=== PATIENT | female | born 1960 | race Caucasian/White ===

== ENCOUNTER 2022-02-19 17:37 | Inpatient (IN) | payer OTHER, MEDICAID ==
[~2022-02-19] VITALS: Ht 162.6 cm; Wt 57.6 kg
[2022-02-19 17:37] VITALS: BP 134/63
--- NOTE | 2022-02-19 17:37 | NUR ---
ZAIRE FONTAINE VIA GURNEY TO BED 03.
--- NOTE | 2022-02-19 17:45 | NUR ---
61 Y/O FEMALE BIBA FROM [facility] C/O JAW PAIN AND SWELLING X TODAY. PT IS NON VERBAL. PER EMS PT O2 SAT WAS 90% THEREFORE SHE WAS PLACED ON 2 L NC. PT IS NOW SATING AT 96%. PMH: CP, SEIZURE DISORDER, QUADRIPLEGIA
[2022-02-19 18:45] LABS: BASOPHILS % (AUTO) 0.3 % (0.0-2.0); HEMATOCRIT 38.4 % (36-48); HEMOGLOBIN 12.4 g/dL (12.0-16.0); LYMPHOCYTES # (AUTO) 0.7 K/uL (2.5-16.5); LYMPHOCYTES % (AUTO) 5.2 % (20.5-51.1); MEAN CORPUSCULAR HEMOGLOBIN 29 pg (27-31); MEAN CORPUSCULAR HGB CONC 32 g/dL (33-37); MEAN CORPUSCULAR VOLUME 90.9 fL (80-94); MONOCYTES # (AUTO) 1.2 K/uL (0.8-1.0); MONOCYTES % (AUTO) 9.5 % (1.7-9.3); NEUTROPHILS # (AUTO) 10.9 K/uL (1.8-7.7); PLATELET COUNT (AUTO) 132 K/uL (140-450); RED BLOOD CELL COUNT(AUTO) 4.22 MIL/uL (4.20-5.40); RED CELL DISTRIBUTION WIDTH 14.8 % (11.6-13.7); WHITE BLOOD COUNT (AUTO) 12.8 K/uL (4.8-10.8)
[2022-02-19 19:02] LABS: ALBUMIN 2.7 g/dL (3.4-5.0); ANION GAP 7.9 (8-16); CARBON DIOXIDE 34.9 mmol/L (21-32); CREATININE 0.8 mg/dL (0.6-1.3); TOTAL BILIRUBIN 0.4 mg/dL (0.0-1.0)
[2022-02-19 19:04] LABS: POTASSIUM 2.8 mmol/L (3.5-5.1)
--- NOTE | 2022-02-19 19:08 | NUR ---
PT RESTING IN BED, EVEN AND UNLABORED BREATHING.
[2022-02-19] MEDS ORDERED: POTASSIUM CHL 20 MEQ/NACL 0.9% 1,000 ML IV ONE ×2 (19:15→21:10)
--- NOTE | 2022-02-19 19:20 | NUR ---
Pt report given to AVIVA YU. Transfer of care at this time.
--- NOTE | 2022-02-19 19:43 | NUR ---
BAMBI MOSER, CARE DIRECTOR RN, CALLED TO CHECK ON PT CONDITION.
[2022-02-19] MEDS ORDERED: CLINDAMYCIN 300 MG in DEXTROSE 5% 50 ML IV ONE (21:10)
--- NOTE | 2022-02-19 22:00 | NUR ---
PT PULLED OUT HER IV AND NASAL CANULA. PT IS UNCOOPERATIVE WITH REPLACING LINES.
--- NOTE | 2022-02-19 22:12 | NUR ---
OBTAINED JHONY SAMPLE AND WALKED TO LAB, HANDED TO CPT. SHAHNAZ
[2022-02-19] MEDS ORDERED: CLINDAMYCIN 600 MG/4 ML VIAL ONE (22:13)
--- NOTE | 2022-02-19 22:20 | NUR ---
González mancera in [facility] - 02/20/22 at 0000 by [email or web address] PT IS NORMALLY ALTERED AND NON VERBAL, PT CONTINUES TO PULL OUT MEDICAL LINES. DR CARMEN AUTHORIZED VERBAL CONSENT FOR SOFT RESTRAINTS.
--- NOTE | 2022-02-19 22:23 | NUR ---
PT TAKEN TO CT
--- NOTE | 2022-02-19 22:25 | NUR ---
PT IS NORMALLY ALTERED AND NON VERBAL, PT CONTINUES TO PULL OUT MEDICAL LINES. DR CARMEN AUTHORIZED VERBAL CONSENT FOR SOFT RESTRAINTS.
--- NOTE | 2022-02-19 22:40 | NUR ---
PT UNCOOPERATIVE AND PULLED OUT US GUIDED IV AND NASAL CANULA. PT'S PUSOX DIPS TO 88% WITHOUT SUPPLEMENTAL OXYGEN.
[2022-02-19] MEDS ORDERED: LAM200 GT (22:49)
[2022-02-19] MEDS ORDERED: ROB1 GT (22:49)
[2022-02-19] MEDS ORDERED: ACET-10509 PO (22:49)
[2022-02-19] MEDS ORDERED: ALUM355S50 PO (22:49)
[2022-02-19] MEDS ORDERED: DIPH25TA53 GT (22:49)
[2022-02-19] MEDS ORDERED: CRAN450T5 PO (22:49)
[2022-02-19] MEDS ORDERED: [UNRECOGNIZED DRUG - CODE] GT (22:49)
[2022-02-19] MEDS ORDERED: VITA1TAB61 GT (22:49)
[2022-02-19] MEDS ORDERED: HYD1C TP (22:49)
[2022-02-19] MEDS ORDERED: LOPE2CAP5 PO (22:49)
[2022-02-19] MEDS ORDERED: FAMO-92 GT (22:49)
[2022-02-19] MEDS ORDERED: DOCU-299 PO (22:49)
[2022-02-19] MEDS ORDERED: MELA5SGL GT (22:49)
[2022-02-19] MEDS ORDERED: LEVE750T25 PO (22:49)
[2022-02-19] MEDS ORDERED: LORA10TA19 PO (22:49)
[2022-02-19] MEDS ORDERED: FOLI1TAB90 GT (22:49)
--- NOTE | 2022-02-19 23:26 | NUR ---
Patient will be admitted to care of DR MALONEY. Admited to Med/Surg. Will go to room 110B. Belongings list completed. Report to AVIVA MONTES.
--- NOTE | 2022-02-19 23:30 | NUR ---
GET THE PATIENT REPORT FROM ER NURSE MAGDALENO, PATIENT IS LYING ON BED, PATIENT IS ALERT BUT NON VERBLE, PATIENT IS RECEIVING OXYGEN 2 LITER VIA NASAL CANNULA , PATIENT IS ON SOFT RESTRAIN , CALL LIGHT IS WITHIN THE REACH ,WILL CONTINUE TO MONITOR PATIENT.
[2022-02-19] MEDS: POTASSIUM CHL 20 MEQ/D5-1/2NS 1,000 ML IV SCH (23:40)
--- NOTE | 2022-02-20 01:00 | NUR ---
PATIENT BLOOD PRESSURE IS : 165/77. HR: 82.TEMP : 99.0F, MASSAGE DOCTOR PALIWAL TO GET ANY PRN MEDICATION ORDER, WAITING FRO DOCTOR TO RESPOND ,CALL LIGHT IS WITHIN THE REACH, WILL CONTINUE TO MONITOR PATIENT.
--- NOTE | 2022-02-20 03:17 | NUR ---
RE CHECKED PATIENT BLOOD PRESSURE IS 132/75.TEMP : 98.7F , CALL LIGHT IS WITHIN THE REACH ,WILL CONTINUE TO MONITOR PATIENT.
[2022-02-20 04:00] VITALS: BP 132/75
--- NOTE | 2022-02-20 04:32 | NUR ---
PATIENT IS LYING ON BED, VITAL SIGN IS WITHIN THE NORMAL RANGE, NO ANY COMPLAIN OF PAIN OR SHORTNESS OF BREATH AT THIS TIME, ALL SCHEDULE MEDICATION IS GIVEN PER DOCTOR ORDER, CALL LIGHT IS WITHIN THE REACH, WILL CONTINUE TO MONITOR PATIENT.
--- NOTE | 2022-02-20 06:08 | NUR ---
PATIENT IS LYING ON BED , CALL LIGHT IS WITHIN THE REACH, WILL CONTINUE TO MONITOR PATIENT.
[2022-02-20] MEDS ORDERED: hydrALAZINE 20 MG/ML VIAL IVP PRN (06:35)
--- NOTE | 2022-02-20 07:35 | NUR ---
GAVE REPORT TO MORNING NURSE TESSY FOR CONTINUOS OF CARE, PATIENT IS STABLE.
--- NOTE | 2022-02-20 07:36 | NUR ---
RECEIVED REPORT FROM ORDER BOOKER NURSE FOR CONTINUITY OF CARE. PT IS AWAKE IN BED. BREATHING EVEN AND UNLABORED ON 2 L NC. NO DISTRESS NOTED. SKIN IS INTACT, WARM AND DRY TO TOUCH WITH REDNESS AND SWELLING ON JAW. IV SITE ON RENARD 20G RUNNING D5 1/2 NS/KCL 20MEq 1000 AT 100ML/HR.PT TOLERATING IT WELL. PT ON NPO. PT HAS G-TUBE, INTACT. PT ON SOFT BILATERAL WRIST RESTRAINT. NO REDNESS, SKIN IS INTACT, CIRCULATION IS GOOD UPON ASSESSMENT OF BOTH WRISTS. CALL LIGHT WITHIN REACH. SAFETY MEASURES IN PLACE. WILL CONTINUE TO MONITOR.
[2022-02-20 08:00] VITALS: BP 170/90
[2022-02-20] MEDS: POTASSIUM CHL 20 MEQ/D5-1/2NS 1,000 ML IV SCH ×2 (08:02→18:11)
--- NOTE | 2022-02-20 08:05 | NUR ---
D5 1/2 NS / KCL 20MEQ HUNG BY RN. PT TOLERATED WELL. WILL CONTINUE TO MONITOR.
--- NOTE | 2022-02-20 09:34 | NUR ---
SBP 170S, DBP 90S. PRN BP MED ADMINISTERED BY RN. WILL CONTINUE TO MONITOR.
--- NOTE | 2022-02-20 10:57 | NUR ---
BP RE-ASSESSED 149/60, HR 94. WILL CONTINUE TO MONITOR.
--- NOTE | 2022-02-20 11:14 | NUR ---
DC PLANNING: THE PATIENT ADMITTED FROM [facility] UNDER THE [facility] NET[facility] WITH C/O RIGHT FACE AND JAW SWELLING. H/O CEREBRAL PALSY AND DEVELOPMENTAL DELAY. WBC'S 12.8, PATIENT GIVEN CLINDAMYCIN IV X 1. CT OF FACIAL BONES SHOWS NO ABSCESS, POSSIBLE CELLULITIS TO RIGHT LOWER FACE. SARA SPOKE WITH OSMAN MARY FROM [facility] AND CONFIRMED THE PATIENT A RESIDENT. THE PATIENT WAS TRANSFERRED FROM [facility] IN NOVEMBER AFTER HAVING A G-TUBE PLACED. SHE HAS DENTAL CARE EVERY 3 MONTHS, WENT TO THE [facility] IN [place]PTEMBER FOR A DENTAL VISIT AND DEEP CLEANING AND HAD ANOTHER DENTAL DEEP CLEANING IN NOVEMBER AT THE FACILITY FROM A DENTAL HYGIENIST. THE PATIENT IS REGIONAL CENTER CONNECTED, HER TELEPHONE MAINTAINER IS SHERI CASTILLO. THE HOUSE CABLE ARMORER OPERATOR IS LISBETH BARONE ([phone]) WHO SHOULD BE CONTACTED TO [facility] WHEN THE PATIENT IS READY TO DC BACK TO [facility]. SARA WILL FOLLOW. Addendum: 02/22/22 at 0852 by Mana Barboza CM DC PLANNING: SARA SPOKE WITH THE ATTENDING MD DR MALONEY, STATES HE IS WAITING FOR FINAL CULTURE RESULTS, BC PRELIM NEGATIVE, URINE CULTURE RESULTS PENDING. STATES HE WILL SPEAK WITH DR MOSES TO SEE IF IV ABX ARE NEEDED, PATIENT WILL NEED SNF IF THIS IS THE CASE AND CAN BE REFERRED TO [facility]. IF IV ABX ARE NOT NEEDED THE PATIENT CAN RETURN TO [facility] AND THEY CAN BE CALLED TO [facility]SP[facility] BACK. SARA WILL FOLLOW.
--- NOTE | 2022-02-20 13:32 | NUR ---
PATIENT HAS BEEN SCREENED AND CATEGORIZED MODERATE NUTRITION RISK. PATIENT WILL BE SEEN WITHIN 3-5 DAYS OF ADMISSION. [address]
--- NOTE | 2022-02-20 14:40 | NUR ---
PT IN BED, SLEEPING. BREATHING EVEN AND UNLABORED. NO DISTRESS NOTED. CALL LIGHT WITHIN REACH. SAFETY MEASURES IN PLACE. WILL CONTINUE TO MONITOR.
--- NOTE | 2022-02-20 17:55 | NUR ---
DR MALONEY AT THE UNIT. INFORMED ABOUT PTS MED AND DIET. SAID HE'LL PUT THE ORDERS.
[2022-02-20] MEDS ORDERED: HYDROCORTISONE 1% CRM 30 GM TUBE TP PRN (18:00)
[2022-02-20] MEDS ORDERED: HYDROcodone/APAP 5/325 MG 1 TAB TAB GT PRN (18:00)
[2022-02-20] MEDS ORDERED: ONDANSETRON 4 MG/2 ML VIAL IVP PRN (18:00)
[2022-02-20] MEDS ORDERED: LORazepam 2 MG/ML VIAL IVP PRN (18:00)
[2022-02-20] MEDS ORDERED: ACETAMINOPHEN EXTRA STRENGTH 500 MG TAB GT PRN ×2 (18:00→18:11)
[2022-02-20] MEDS ORDERED: LOPERAMIDE 2 MG CAP GT PRN (18:00)
[2022-02-20] MEDS ORDERED: ALUMINUM HYD/MAG/SIMETHICONE 30 ML UDC GT PRN (18:00)
--- NOTE | 2022-02-20 18:10 | NUR ---
CALLED PHARMACY REGARDING CLINDAMYCIN DUE AT 6PM NOT YET AT THE UNIT. PHARMACY SAID IT NEEDS TO BE PREPARED. THEY'LL BRING IT WHEN READY.
[2022-02-20 18:13] VITALS: BP 130/92
[2022-02-20] MEDS ORDERED: VANCOMYCIN PER PHARMACY MC PRN (18:50)
--- NOTE | 2022-02-20 19:07 | NUR ---
FOLLOW-UP CLINDAMYCIN TO PHARMACY. THEY'LL BRING IT NOW. WILL ENDORSE TO CONSULTING DATABASE ADMINISTRATOR NURSE.
--- NOTE | 2022-02-20 19:35 | NUR ---
GAVE REPORT TO SPD MANAGER NURSE FOR CONTINUITY OF CARE. ALL NEEDS MET THROUGHOUT SHIFT. PT IS STABLE.
--- NOTE | 2022-02-20 19:36 | NUR ---
RECEIVED BEDSIDE REPORT FROM DAY SHIFT NURSE FOR CONTINUITY OF PT CARE.
[2022-02-20] MEDS ORDERED: CLINDAMYCIN 600 MG/4 ML VIAL ONE (20:12)
[2022-02-20] MEDS: CLINDAMYCIN 300 MG in DEXTROSE 5% 50 ML IV SCH (20:23)
[2022-02-20] MEDS: levETIRAcetam 100 MG/ML ORASYR GT SCH (20:25)
[2022-02-20] MEDS: GLYCOPYRROLATE 1 MG TAB GT SCH (20:26)
[2022-02-20] MEDS ORDERED: NON-FORMULARY ITEM (Levetiracetam* (Keppra Xr*) 1 TAB) GT/PO SCH (21:00)
[2022-02-20] MEDS ORDERED: NON-FORMULARY ITEM (Cranberry Fruit (Cranberry) 450 MG) PO SCH (21:00)
[2022-02-20] MEDS ORDERED: VANCOMYCIN 1,000 MG in DEXTROSE 5% 250 ML IV ONE (21:00)
[2022-02-20] MEDS ORDERED: VANCOMYCIN 1,000 MG VIAL ONE (22:18)
[2022-02-21] MEDS ORDERED: CLINDAMYCIN 600 MG/4 ML VIAL ONE ×2 (00:56→06:09)
[2022-02-21] MEDS: CLINDAMYCIN 300 MG in DEXTROSE 5% 50 ML IV SCH ×4 (01:00→18:19)
--- NOTE | 2022-02-21 02:00 | NUR ---
PT IS ASLEEP, NO FACIAL GRIMACING OR DISCOMFORT.
[2022-02-21] MEDS: POTASSIUM CHL 20 MEQ/D5-1/2NS 1,000 ML IV SCH ×2 (03:20→14:33)
[2022-02-21 07:09] LABS: ANION GAP 3.7 (8-16); BASOPHILS % (AUTO) 0.2 % (0.0-2.0); CARBON DIOXIDE 33.9 mmol/L (21-32); CREATININE 0.5 mg/dL (0.6-1.3); EOSINOPHILS % (AUTO) 0.2 % (0.0-4.0); HEMATOCRIT 34.6 % (36-48); HEMOGLOBIN 11.4 g/dL (12.0-16.0); LYMPHOCYTES % (AUTO) 9.7 % (20.5-51.1); MEAN CORPUSCULAR HEMOGLOBIN 30 pg (27-31); MEAN CORPUSCULAR HGB CONC 33 g/dL (33-37); MEAN CORPUSCULAR VOLUME 91.7 fL (80-94); MONOCYTES # (AUTO) 0.9 K/uL (0.8-1.0); MONOCYTES % (AUTO) 8.3 % (1.7-9.3); NEUTROPHILS # (AUTO) 8.6 K/uL (1.8-7.7); NEUTROPHILS % (AUTO) 81.6 % (42.2-75.2); PLATELET COUNT (AUTO) 127 K/uL (140-450); RED BLOOD CELL COUNT(AUTO) 3.77 MIL/uL (4.20-5.40); WHITE BLOOD COUNT (AUTO) 10.6 K/uL (4.8-10.8)
[2022-02-21 07:19] LABS: POTASSIUM 2.6 mmol/L (3.5-5.1)
--- NOTE | 2022-02-21 07:19 | NUR ---
PT IS ON STABLE CONDITION. ENDORSED TO DAY SHIFT NURSE FOR CONTINUITY OF PT CARE.
--- NOTE | 2022-02-21 08:00 | NUR ---
PT ENDORSED FROM STOCK PREPARATION SUPERVISOR WITH RESTRAINTS, DUE TO PULLING OF TUBES AND LINES. PT STABLE. NO S/S OF DISTRESS
--- NOTE | 2022-02-21 08:44 | NUR ---
FNS CONSULT HAS BEEN RECEIVED FOR TUBE FEEDING. PATIENT HAS BEEN RE-SCREENED HIGH RISK AND WILL BE SEEN TODAY. BELGICA WICK RD
[2022-02-21] MEDS: GLYCOPYRROLATE 1 MG TAB GT SCH ×2 (09:00→21:14)
[2022-02-21] MEDS: MULTIVITAMIN 1 TAB GT SCH (09:00)
[2022-02-21] MEDS ORDERED: VITAMIN B COMPLEX GT/PO SCH (09:00)
[2022-02-21] MEDS: LORATADINE 10 MG TAB GT SCH (09:00)
[2022-02-21] MEDS ORDERED: NON-FORMULARY ITEM (Famotidine* (Pepcid*) 40 MG) GT/PO SCH (09:00)
[2022-02-21] MEDS ORDERED: NUTRITIONAL SUPPLEMENT GT SCH (09:00)
[2022-02-21] MEDS: FOLIC ACID 1 MG TAB GT SCH (09:00)
[2022-02-21] MEDS: FAMOTIDINE 20 MG TAB GT SCH (09:00)
--- NOTE | 2022-02-21 09:00 | NUR ---
PT CALM, RESTRAINTS REMOVED. PT NOT ATTEMPTING TO PULL OR REMOVE TUBES OR LINES. PT HAS ABDOMINAL BINDER COVERING GTUBE TO PREVENT PT FROM PULLING
[2022-02-21] MEDS: levETIRAcetam 100 MG/ML ORASYR GT SCH ×2 (09:56→21:14)
[2022-02-21] MEDS: VANCOMYCIN 750 MG in DEXTROSE 5% 250 ML IV SCH ×2 (10:31→22:49)
--- NOTE | 2022-02-21 10:42 | NUR ---
PT IS RESTING IN BED AWAKE WITH EYES OPEN. SPOKE WITH MD FOR TUBE FEEDING ORDER AND POTASSIUM SUPPLEMENT. WAITING FOR ORDER. BREATHING SYMMETRICAL. NO S/S OF DISTRESS. HELD MORNING MEDS DUE TO NPO STATUS, GAVE LAMOTAGRINE AND KEPPRA. Addendum: 02/21/22 at 1051 by Maxwell Nagy RN RN ORDERS RECIEVED FOR GLUCERNA 40ML/HR Q6 H2O FLUSH AND 40MEQ KRIDER ONE TIME
--- NOTE | 2022-02-21 12:08 | NUR ---
PT IV PULLED OUT, WILL INSERT NEW IV. Addendum: 02/21/22 at 1505 by Maxwell Nagy RN RN PT REFUSING O2 VIA NC
--- NOTE | 2022-02-21 12:36 | NUR ---
NEW IV ACCESS INSERTED AT R WRIST BY AVIVA ALMARAZ, USING 20G INSERTION CATH. WAGNER CONTINUES PER MD ORDER.
[2022-02-21] MEDS ORDERED: KCL 20 MEQ/WATER INJ PREMIX 200 ML IV SCH (13:00)
--- NOTE | 2022-02-21 14:14 | NUR ---
02/21/22 RD INITIAL ASSESSMENT COMPLETED PLEASE REFER TO NUTRITION ASSESSMENT UNDER CARE ACTIVITY FOR ESTIMATED NUTRITIONAL NEEDS. 1. RECOMMENDED GLUCERNA 1.2 WITH A GOAL RATE OF 50 ML/HR -FWF: 150 ML Q6H PER MD -START AT 10 ML/HR AND INCREASE BY 10 ML Q4H TOLERATED -WILL PROVIDE 1440KCAL AND 72GM PROTEIN, MEETING 100% OF ESTIMATED NUTRITIONAL NEEDS 2. MONITOR GASTRIC RESIDUALS 3. RD TO FOLLOW-UP 2-3 DAYS, HIGH RISK BELGICA WICK RD
--- NOTE | 2022-02-21 15:36 | NUR ---
SPOKE TO PHARMACY. JUANCARLOS MARIE. ATTEMPTED TO CLARIFY K RIDER ORDER FOR 40MEQ/200ML. 2 BAGS OF 20 MEQ/100ML BAGS PULLED FOR PT TO FULFILL ORDER. EMAR NOT ACCOUNTING FOR 40 MEQS, EMAR SHOWS 20MEQ/200ML AT THIS TIME. PHARMACY TO FIX. CHARGE NURSE BLANCA AWARE AND INFORMED
--- NOTE | 2022-02-21 16:30 | NUR ---
DC PLANNING PATIENT IS A 61 YEAR OLD FEMALE ADMITTED TO THE [facility]/ED ON 02/19/2022 DUE TO RIGHT FACE AND JAW SWELLING. PATIENT HAS MEDICAL HISTORY OF CEREBRAL PALSY AND DEVELOPMENTAL DELAYS. SW MET WITH PATIENT AT BEDSIDE TO DISCUSS AND GATHER PATIENT'S COLLATERAL INFORMATION. PATIENT WAS AWAKE BUT IS UNABLE TO PROVIDE HER INFORMATION. SW CALL PATIENT'S FACILITY [facility] UNDER THE [facility]WORK AT WITH OSMAN MARY(THE RN IN THE FACILITY) OSMAN CONFIRMED INFORMATION ABOUT PATIENT AND REPORTED THAT PATIENT HAS BEEN IN THEIR FACILITY SINCE NOVEMBER 2021 WHEN PATIENT WAS TRANSFERRED FROM A [facility] AFTER HAVING A G-TUBE PLACED. PER OSMAN PATIENT USUALLY GETS DENTAL CARE EVERY 3 MONTHS FROM THE [facility]. PER OSMAN LAS VISIT WAS ON SEPTEMBER 2021 FOR A DENTAL VISIT AND DEEP CLEANING AND HAD ANOTHER DENTAL DEEP CLEANING IN NOVEMBER AT THE FACILITY FROM A DENTAL HYGIENIST. 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 ([phone]) PER OSMAN PATIENT SHOULD BE ABLE TO RETURN TO THE SAME PLACEMENT UNLESS HER IRC WORKER RECOMMENDS DIFFERENT PLACEMENT WHEN SHE IS READY AND STABLE TO DISCHARGE FROM [facility]. PER OSMAN THE HOUSE SCALEMAKER LISBETH BARONE IS WHO SHOULD BE CONTACTED TO [facility] WHEN THE PATIENT IS READY TO DC BACK TO [facility]. SW ATTEMPTED TO CONTACT PATIENT'S IRC BIOSECURITY OFFICER SHERI CASTILLO AT NO RESPONSE AND SW LEFT A VOICEMAIL MGS WITH DIRECT CONTACT INFORMATION AND A REQUEST FOR A CALL BACK. MYLA OR SARA WILL FOLLOW UP NEEDED.
[2022-02-21] MEDS ORDERED: NON-FORMULARY ITEM (Melatonin 1 CAP) GT/PO SCH (17:00)
[2022-02-21] MEDS: MELATONIN 3 MG TAB GT SCH (18:00)
--- NOTE | 2022-02-21 18:25 | NUR ---
PT STABLE. TOLERATING TUBE FEED. NO S/S OF DISTRESS. CALL LIGHT IN REACH. ALL SAFETY MEASURES IN PLACE. TUBES AND LINES HIDDEN FROM PATIENT, NO PULLING NOTED AT THIS TIME
--- NOTE | 2022-02-21 19:25 | NUR ---
RECEIVED ENDORSEMENT FROM AVIVA ALMARAZ FOR CONTINUITY OF CARE. PATIENT IS STABLE AND AWAKE. A&OX0. PATIENT IS APHASIC. ON ROOM AIR WITH NO APPARENT S/SX OF ACUTE DISTRESS. RESPIRATIONS EVEN AND UNLABORED. FLACC=0. PATIENT IS NON-AMBULATORY. PATIENT IS INCONTINENT OF VOID AND BM. PATIENT'S IV SITE TO THE R WRIST 20G IS PATENT/INTACT WITH D5-1/2NS-[id number] INFUSING AT 100 ML/HOUR. PLAN OF CARE AND WHITE COMMUNICATION BOARD UPDATED. ALL SAFETY MEASURES IN PLACE. BED IN LOW/LOCKED POSITION. CALL LIGHT WITHIN REACH. WILL CONTINUE TO MONITOR.
--- NOTE | 2022-02-21 19:39 | NUR ---
ENDORSED PT TO UTILITY BAG ASSEMBLER. PT STABLE. PT IV AND TUBE FEEDING RUNNING PER MD ORDER. NO S/S OF DISTRESS. CALL LIGHT IN REACH. ALL SAFETY MEASURES IN PLACE
[2022-02-21 20:00] VITALS: BP 115/57
[2022-02-21] MEDS: POTASSIUM CHLORIDE 20% 40 MEQ/15 ML UDC GT SCH (21:14)
--- NOTE | 2022-02-21 21:15 | NUR ---
CHECKED PATIENT'S GT FOR RESIDUAL. NO RESIDUAL NOTED AT THIS TIME. ADMINISTERED SCHEDULED MEDICATIONS PER MD ORDER. TOLERATED WELL. FLACC=0. RESPIRATIONS EVEN AND UNLABORED WITH NO APPARENT S/SX OF ACUTE DISTRESS. ALL SAFETY MEASURES IN PLACE. WILL CONTINUE TO MONITOR.
[2022-02-22] MEDS: POTASSIUM CHL 20 MEQ/D5-1/2NS 1,000 ML IV SCH ×2 (00:45→09:20)
[2022-02-22] MEDS ORDERED: CLINDAMYCIN 600 MG/4 ML VIAL ONE ×3 (00:51→23:51)
[2022-02-22] MEDS: CLINDAMYCIN 300 MG in DEXTROSE 5% 50 ML IV SCH ×5 (00:56→23:45)
--- NOTE | 2022-02-22 01:15 | NUR ---
CHECKED PATIENT. PATIENT IS STABLE AND ASLEEP. CHEST IS RISING AND FALLING EVENLY. RESPIRATIONS EVEN AND UNLABORED WITH NO APPARENT S/SX OF ACUTE DISTRESS. WHITE COMMUNICATION BOARD UPDATED. ALL SAFETY MEASURES IN PLACE. CALL LIGHT WITHIN REACH. WILL CONTINUE TO MONITOR.
--- NOTE | 2022-02-22 03:15 | NUR ---
ROUNDED ON PATIENT. PATIENT IS STABLE AND ASLEEP. CHEST IS RISING AND FALLING EVENLY. RESPIRATIONS EVEN AND UNLABORED WITH NO APPARENT S/SX OF ACUTE DISTRESS. WHITE COMMUNICATION BOARD UPDATED. ALL SAFETY MEASURES IN PLACE. CALL LIGHT WITHIN REACH. WILL CONTINUE TO MONITOR.
[2022-02-22 04:00] VITALS: BP 118/61
--- NOTE | 2022-02-22 05:15 | NUR ---
CHECKED PATIENT. PATIENT IS STABLE AND ASLEEP. CHEST IS RISING AND FALLING EVENLY. RESPIRATIONS EVEN AND UNLABORED WITH NO APPARENT S/SX OF ACUTE DISTRESS. ALL NEEDS MET. WHITE COMMUNICATION BOARD UPDATED. ALL SAFETY MEASURES IN PLACE. CALL LIGHT WITHIN REACH. WILL CONTINUE TO MONITOR.
--- NOTE | 2022-02-22 07:05 | NUR ---
ENDORSED PATIENT TO AVIVA HALEY FOR CONTINUITY OF CARE. PATIENT IS STABLE.
[2022-02-22 08:00] VITALS: BP 137/68
--- NOTE | 2022-02-22 08:00 | NUR ---
received report from the night nurse, pt is resting comfortably.[email or web address]
[2022-02-22] MEDS: FAMOTIDINE 20 MG TAB GT SCH (08:55)
[2022-02-22] MEDS: levETIRAcetam 100 MG/ML ORASYR GT SCH ×2 (08:55→21:07)
[2022-02-22] MEDS: LORATADINE 10 MG TAB GT SCH (08:57)
[2022-02-22] MEDS: GLYCOPYRROLATE 1 MG TAB GT SCH ×2 (08:57→21:07)
[2022-02-22] MEDS: MULTIVITAMIN 1 TAB GT SCH (08:58)
[2022-02-22] MEDS: FOLIC ACID 1 MG TAB GT SCH (08:58)
[2022-02-22 08:59] LABS: EOSINOPHILS # (AUTO) 0.3 K/uL (0-0.4); LYMPHOCYTES % (AUTO) 13.2 % (20.5-51.1)
[2022-02-22] MEDS: POTASSIUM CHLORIDE 20% 40 MEQ/15 ML UDC GT SCH (08:59)
[2022-02-22 09:01] LABS: BASOPHILS % (AUTO) 0.3 % (0.0-2.0); EOSINOPHILS % (AUTO) 3.6 % (0.0-4.0); HEMATOCRIT 34.7 % (36-48); HEMOGLOBIN 11.1 g/dL (12.0-16.0); LYMPHOCYTES # (AUTO) 1.2 K/uL (2.5-16.5); MEAN CORPUSCULAR HEMOGLOBIN 30 pg (27-31); MEAN CORPUSCULAR HGB CONC 32 g/dL (33-37); MEAN CORPUSCULAR VOLUME 92.7 fL (80-94); MONOCYTES # (AUTO) 0.8 K/uL (0.8-1.0); MONOCYTES % (AUTO) 9.2 % (1.7-9.3); NEUTROPHILS # (AUTO) 6.7 K/uL (1.8-7.7); NEUTROPHILS % (AUTO) 73.7 % (42.2-75.2); PLATELET COUNT (AUTO) 133 K/uL (140-450); RED BLOOD CELL COUNT(AUTO) 3.75 MIL/uL (4.20-5.40)
[2022-02-22 09:13] LABS: ANION GAP 6.6 (8-16); CARBON DIOXIDE 29.6 mmol/L (21-32); CREATININE 0.5 mg/dL (0.6-1.3); POTASSIUM 4.2 mmol/L (3.5-5.1)
[2022-02-22] MEDS: VANCOMYCIN 750 MG in DEXTROSE 5% 250 ML IV SCH ×2 (10:25→21:50)
[2022-02-22 17:22] VITALS: BP 129/94
[2022-02-22] MEDS: MELATONIN 3 MG TAB GT SCH (17:57)
--- NOTE | 2022-02-22 18:20 | NUR ---
pt GT keep sleeping out of the feeding connection, taped down three times c\o pt taking it off, put the pillow under arm and covered it with towel but needs frequent assessment. [email or web address]
--- NOTE | 2022-02-22 19:05 | NUR ---
RECEIVED ENDORSEMENT FROM SUDHA CHICAS FOR CONTINUITY OF CARE. PATIENT IS STABLE AND AWAKE. APHASIC. A&OX0. AROUSABLE TO NAME. FLACC=0. ON ROOM AIR. RESPIRATIONS EVEN AND UNLABORED WITH NO APPARENT S/SX OF ACUTE DISTRESS. PATIENT'S IV SITE LFA IS PATENT/INTACT SL. PATIENT IS NONAMBULATORY. SKIN IS INTACT. PATIENT IS INCONTINENT OF VOID AND BM. GT FEEDING MACHINE IN PLACE AND OPERATING. PLAN OF CARE UPDATED. WHITE COMMUNICATION BOARD UPDATED. ALL SAFETY MEASURES IN PLACE. CALL LIGHT WITHIN REACH. WILL CONTINUE TO MONITOR.
[2022-02-22 20:00] VITALS: BP 135/89
--- NOTE | 2022-02-22 20:28 | NUR ---
Patient's Plan of Care was discussed and reviewed with HOT KNIFE CUTTER: CLIFOFRD FREDERICK
--- NOTE | 2022-02-22 21:05 | NUR ---
CHECKED FOR RESIDUALS AND NONE NOTED AT THIS TIME. ADMINISTERED SCHEDULED GT MEDICATIONS PER MD ORDER. TOLERATED WELL. FLACC=0. RESPIRATIONS EVEN AND UNLABORED WITH NO APPARENT S/SX OF ACUTE DISTRESS. WHITE COMMUNICATION BOARD UPDATED. ALL SAFETY MEASURES IN PLACE. CALL LIGHT WITHIN REACH. WILL CONTINUE TO MONITOR.
--- NOTE | 2022-02-22 23:05 | NUR ---
PATIENT IS STABLE AND ASLEEP. CHEST IS RISING AND FALLING EVENLY. RESPIRATIONS EVEN AND UNLABORED WITH NO APPARENT S/SX OF ACUTE DISTRESS. WHITE COMMUNICATION BOARD UPDATED. ALL SAFETY MEASURES IN PLACE. CALL LIGHT WITHIN REACH. WILL CONTINUE TO MONITOR..
--- NOTE | 2022-02-23 01:00 | NUR ---
PT HAD 3 BAG OF CLINDAMYCIN IN FRI BUT 2 OF THEM AT 2330.BECAUSE DAY SHIFT GAVE DOSE OF MN SO I COULDN'T USE 2 BAGS THAT WERE SO I OVERRIDED CLINDAMYCIN FOR MN AND MIXED 300MG DW5% AND ADMINISTER TO PT.
--- NOTE | 2022-02-23 01:05 | NUR ---
CLEANED AND CHANGED PATIENT WITH DEEPAK HUANG. TOLERATED WELL. FLACC=0. RESPIRATIONS EVEN AND UNLABORED WITH NO APPARENT S/SX OF ACUTE DISTRESS. WHITE COMMUNICATION BOARD UPDATED. ALL SAFETY MEASURES IN PLACE. CALL LIGHT WITHIN REACH. WILL CONTINUE TO MONITOR.
--- NOTE | 2022-02-23 03:15 | NUR ---
PATIENT IS STABLE AND RESTING. CHEST IS RISING AND FALLING EVENLY. RESPIRATIONS EVEN AND UNLABORED WITH NO APPARENT S/SX OF ACUTE DISTRESS. FLACC=0. RESPIRATIONS EVEN AND UNLABORED WITH NO APPARENT S/SX OF ACUTE DISTRESS. WHITE COMMUNICATION BOARD UPDATED. ALL SAFETY MEASURES IN PLACE. CALL LIGHT WITHIN REACH. WILL CONTINUE TO MONITOR.
[2022-02-23 04:00] VITALS: BP 131/91
--- NOTE | 2022-02-23 05:15 | NUR ---
CHANGED PATIENT'S GT FEEDING BAG AND WATER FLUSH BAG. TOLERATED WELL. NO RESIDUALS NOTED AT THIS TIME. FLACC=0. RESPIRATIONS EVEN AND UNLABORED WITH NO APPARENT S/SX OF ACUTE DISTRESS. ALL NEEDS MET. ALL SAFETY MEASURES IN PLACE. CALL LIGHT WITHIN REACH. WILL CONTINUE TO MONITOR.
[2022-02-23] MEDS: CLINDAMYCIN 300 MG in DEXTROSE 5% 50 ML IV SCH ×3 (06:21→18:00)
--- NOTE | 2022-02-23 07:00 | NUR ---
ENDORSED PATIENT TO AVIVA HALEY FOR CONTINUITY OF CARE. PATIENT IS STABLE.
[2022-02-23 07:33] LABS: ANION GAP 4.8 (8-16); CARBON DIOXIDE 32.9 mmol/L (21-32); CREATININE 0.5 mg/dL (0.6-1.3); POTASSIUM 3.7 mmol/L (3.5-5.1)
[2022-02-23 07:34] LABS: BASOPHILS % (AUTO) 0.2 % (0.0-2.0); EOSINOPHILS # (AUTO) 0.2 K/uL (0-0.4); EOSINOPHILS % (AUTO) 4.3 % (0.0-4.0); HEMATOCRIT 32.3 % (36-48); HEMOGLOBIN 10.9 g/dL (12.0-16.0); LYMPHOCYTES # (AUTO) 0.9 K/uL (2.5-16.5); LYMPHOCYTES % (AUTO) 17.9 % (20.5-51.1); MEAN CORPUSCULAR HEMOGLOBIN 30 pg (27-31); MEAN CORPUSCULAR HGB CONC 34 g/dL (33-37); MEAN CORPUSCULAR VOLUME 90.2 fL (80-94); MONOCYTES # (AUTO) 0.5 K/uL (0.8-1.0); MONOCYTES % (AUTO) 10.1 % (1.7-9.3); NEUTROPHILS # (AUTO) 3.4 K/uL (1.8-7.7); NEUTROPHILS % (AUTO) 67.5 % (42.2-75.2); PLATELET COUNT (AUTO) 135 K/uL (140-450); RED BLOOD CELL COUNT(AUTO) 3.58 MIL/uL (4.20-5.40); RED CELL DISTRIBUTION WIDTH 14.5 % (11.6-13.7)
--- NOTE | 2022-02-23 08:00 | NUR ---
GOT REPORT FROM THE NIGHT NURSE, PT SLEEPING WITHOUT SOB. [id number]
[2022-02-23] MEDS ORDERED: THE GT (08:07)
[2022-02-23] MEDS ORDERED: AMOX-1230 PO (08:07)
[2022-02-23] MEDS ORDERED: FAMO20TA13 GT (08:07)
[2022-02-23] MEDS ORDERED: LACT500C2 PO (08:07)
[2022-02-23] MEDS: GLYCOPYRROLATE 1 MG TAB GT SCH ×2 (08:28→20:24)
[2022-02-23] MEDS: levETIRAcetam 100 MG/ML ORASYR GT SCH ×2 (08:28→20:24)
[2022-02-23] MEDS: FAMOTIDINE 20 MG TAB GT SCH (08:29)
[2022-02-23] MEDS: MULTIVITAMIN 1 TAB GT SCH (08:29)
[2022-02-23] MEDS: LORATADINE 10 MG TAB GT SCH (08:29)
[2022-02-23] MEDS: FOLIC ACID 1 MG TAB GT SCH (08:31)
[2022-02-23] MEDS: VANCOMYCIN 750 MG in DEXTROSE 5% 250 ML IV SCH (10:32)
[2022-02-23 16:00] VITALS: BP 127/77
[2022-02-23] MEDS: MELATONIN 3 MG TAB GT SCH (17:57)
--- NOTE | 2022-02-23 19:10 | NUR ---
RECEIVED ENDORSEMENT FROM SUDHA CHICAS FOR CONTINUITY OF CARE. PATIENT IS STABLE AND AWAKE. APHASIC. A&OX0. AROUSABLE TO NAME. FLACC=0. ON ROOM AIR. RESPIRATIONS EVEN AND UNLABORED WITH NO APPARENT S/SX OF ACUTE DISTRESS. PATIENT'S IV SITE LFA IS PATENT/INTACT SL. PATIENT IS NONAMBULATORY. SKIN IS INTACT. PATIENT IS INCONTINENT OF VOID AND BM. GT FEEDING MACHINE IN PLACE AND OPERATING. PATIENT IS PENDING DISCHARGE. SUDHA DANIELS REPORT TO [place] AT [facility]. WILL FOLLOW UP WITH TRANSPORT LATER. PLAN OF CARE UPDATED. WHITE COMMUNICATION BOARD UPDATED. ALL SAFETY MEASURES IN PLACE. CALL LIGHT WITHIN REACH. WILL CONTINUE TO MONITOR.
--- NOTE | 2022-02-23 19:31 | NUR ---
Reviewed patient plan of care with Paul TELLO.
[2022-02-23 20:00] VITALS: BP 133/81
--- NOTE | 2022-02-23 20:40 | NUR ---
CHECKED FOR RESIDUAL. NONE NOTED AT THIS TIME. SCHEDULED ADMINISTERED GT MEDICATIONS PER MD ORDER. TOLERATED WELL. FLACC 0. RESPIRATIONS EVEN AND UNLABORED WITH NO APPARENT S/SX OF ACUTE DISTRESS. ALL SAFETY MEASURES IN PLACE. WILL CONTINUE TO MONITOR.
--- NOTE | 2022-02-23 21:15 | NUR ---
TRANSPORT [facility] LEFT UNIT WITH PATIENT. DC FORM SIGNED. REVIEW OF PATIENT'S PACKET NOT COMPLETED DUE TO PATIENT'S DEVELOPMENTAL DELAY. PATIENT IS STABLE UPON DISCHARGE. SPEECH COMMUNICATION PROFESSOR BONG NOTIFIED.
== END 2022-02-23 21:15 | DRG 871 ==
LOC: MED 17:37 → MMU 21:19 → MTU 23:07
PROVIDERS: ADMIT Preventive Medicine Preventive Medicine/Occupational Environmental Medicine; ATTEND Preventive Medicine Preventive Medicine/Occupational Environmental Medicine
DX: A41.9 Sepsis, unspecified organism (principal); E43 Unspecified severe protein-calorie malnutrition; E87.0 Hyperosmolality and hypernatremia; L03.211 Cellulitis of face; M27.2 Inflammatory conditions of jaws; E87.6 Hypokalemia; E83.52 Hypercalcemia; D69.6 Thrombocytopenia, unspecified; Z20.822 Contact with and (suspected) exposure to COVID-19; E88.09 Other disorders of plasma-protein metabolism, not elsewhere classified; R73.9 Hyperglycemia, unspecified; K11.20 Sialoadenitis, unspecified; D64.9 Anemia, unspecified; E83.51 Hypocalcemia; G80.9 Cerebral palsy, unspecified; R13.10 Dysphagia, unspecified; Z93.1 Gastrostomy status; Z68.21 Body mass index [BMI] 21.0-21.9, adult
CPT/HCPCS: 36415; 70487; 71045; 80048; 80053; 80202; 83605; 85025; 85651; 86140; 87040; 87081; 87086; 96365; 96366; 96367; 99285; J0360; J3370; J3480; J3490; J7030; J7060; Q9967

== ENCOUNTER 2022-03-09 00:47 | Emergency (ER) | payer OTHER, MEDICAID ==
[~2022-03-09] VITALS: Ht 165.1 cm; Wt 68.0 kg
[~2022-03-09 00:47] MED LIST: ACET-10509 PO; ALUM355S50 PO; AMOX-1230 PO; CRAN450T5 PO; DIPH25TA53 GT; DOCU-299 PO; FAMO-92 GT; FAMO20TA13 GT; FOLI1TAB90 GT; HYD1C TP; LACT500C2 PO; LAM200 GT; LEVE750T25 PO; LOPE2CAP5 PO; LORA10TA19 PO; MELA5SGL GT; ROB1 GT; THE GT; VITA1TAB61 GT; [UNRECOGNIZED DRUG - CODE] GT
[2022-03-09 00:52] VITALS: BP 140/82
--- NOTE | 2022-03-09 01:00 | NUR ---
BIBA TAKEN TO BED #3
--- NOTE | 2022-03-09 05:23 | NUR ---
PT BIBA DUE TO G-TUBE PULLED OUT. PT IN NO APPARENT ACUTE DISTRESS BREATHING AT RA 02 SAT 96%. PT NON VERBAL, AWAKE, DOES NOT FOLLOW COMMAND. HX: SEIZURES
--- NOTE | 2022-03-09 05:29 | NUR ---
RADIOLOGY AT BEDSIDE DOING X-RAY W/CONTRAST OF THE ABDOMEN.
--- NOTE | 2022-03-09 07:05 | NUR ---
BEDSIDE REPORT GIVEN TO DAY SHIFT NURSE FOR CONTINUITY OF CARE. PT IN NO ACUTE DISTRESS BREATHING AT RA.
--- NOTE | 2022-03-09 07:30 | NUR ---
received pt in [place] nonverbal. pt pending gtube placement confirmation. nad. safety maintained
--- NOTE | 2022-03-09 09:30 | NUR ---
spoke to rn at [facility] with update on care and eta for dispo.
--- NOTE | 2022-03-09 09:45 | NUR ---
amr bls at bedside report given to emt. pt stable for dc.
[2022-03-09 09:58] VITALS: BP 114/67
== END 2022-03-09 09:53 ==
LOC: MED 00:47
DX: K94.23 Gastrostomy malfunction (principal); Z86.69 Personal history of other diseases of the nervous system and sense organs; Z79.899 Other long term (current) drug therapy; Z79.2 Long term (current) use of antibiotics
CPT/HCPCS: 43762; 74240; 99284; Q0092; Q9967

== ENCOUNTER 2022-07-30 12:07 | Emergency (ER) | payer OTHER, MEDICAID ==
[~2022-07-30] VITALS: Ht 160 cm; Wt 75.7 kg
[2022-07-30 12:23] VITALS: BP 131/49
--- NOTE | 2022-07-30 14:02 | NUR ---
61YO FEMALE PT BIB CAREGIVER DUE GTUBE MALFUNCTION XTODAY. PER CAREGIVER, [employer] NOTICED CRACK IN GTUBE DURING MORNING MED/FEEDING. 3PORT GTUBE PRESENT AND IN PLACE W/ BROKEN TUBE NOTED BELOW VALVES. PT NON VERBAL PER BASELINE AND IN NO VISIBLE DISTRESS. ABDOMEN NON TENDER OR DISTENDED. NON AMBULATORY USING WHEELCHAIR. PER CAREGIVER, PT W/ 19-20 GTUBE. CAREGIVER AT BEDSIDE. HX:CEREBRAL PALSY, SEIZURE, QUADRIPELGIA, ENCEPHALOPATHY NKA
--- NOTE | 2022-07-30 14:21 | NUR ---
MD GAMING AT BEDSIDE FOR EVALUATION
--- NOTE | 2022-07-30 15:34 | NUR ---
pt transfered to bed , bed at lowest position, bed rails up w/ seizure pads in place.
[2022-07-30 19:14] VITALS: BP 140/80
--- NOTE | 2022-07-30 19:14 | NUR ---
Patient discharged with v/s stable. Written and verbal after care instructions FOR GASTROSTOMY TUBE HOME GUIDE given and explained. Patient verbalized understanding. Wheel Chair Assisted with by caregiver. All questions addressed prior to discharge. Advised to follow up with PMD.
--- NOTE | 2022-07-30 19:16 | NUR ---
Chart checked and completed. The patient's care was reviewed and supervised by Merced Gomez RN.
== END 2022-07-30 19:14 | disposition home or self-care (01) ==
LOC: MED 12:07
DX: K94.23 Gastrostomy malfunction (principal); Z20.822 Contact with and (suspected) exposure to COVID-19; G40.909 Epilepsy, unspecified, not intractable, without status epilepticus; Z79.899 Other long term (current) drug therapy; Z98.890 Other specified postprocedural states; Z86.19 Personal history of other infectious and parasitic diseases
CPT/HCPCS: 43762; 74240; 87426; 99284; Q9967